=== PATIENT | male | born 1995 | race Caucasian/White ===

== ENCOUNTER 2022-04-10 13:44 | Emergency (ER) | payer OTHER ==
[~2022-04-10] VITALS: Ht 167.6 cm; Wt 82.0 kg
[2022-04-10] MEDS ORDERED: IBUPROFEN 600MG TABLET PO STA (17:27)
[2022-04-10] MEDS ORDERED: IBUP-2029 PO (18:13)
[2022-04-10 18:34] VITALS: BP 140/85
== END 2022-04-10 18:55 | disposition home or self-care (01) ==
LOC: ER 13:44
DX: S90.31XA Contusion of right foot, initial encounter (principal); V27.4XXA Motorcycle driver injured in collision with fixed or stationary object in traffic accident, initial encounter; Y93.55 Activity, bike riding; Y92.410 Unspecified street and highway as the place of occurrence of the external cause
CPT/HCPCS: 73590; 73630; 99284